=== PATIENT | male | born 1960 | race African-American/Black ===

== ENCOUNTER 2018-09-05 09:10 | Emergency (ER) | payer MEDICAID, OTHER ==
[~2018-09-05] VITALS: Ht 170.2 cm; Wt 98.4 kg
[2018-09-05 09:17] VITALS: BP 145/82
[2018-09-05] MEDS ORDERED: KETOROLAC TROMETH 60MG/2ML VIAL IM ONE (10:30)
[2018-09-05 11:19] LABS: Urine Bacteria NONE SEEN /hpf (None Seen); Urine Blood Negative /uL (Negative); Urine Mucus FEW (None Seen); Urine Specific Gravity 1.014 (1.001-1.035); Urine WBC 32 /hpf (0 - 3)
== END 2018-09-05 11:35 | disposition home or self-care (01) ==
LOC: ER 09:12
DX: M54.6 Pain in thoracic spine (principal); G89.29 Other chronic pain
CPT/HCPCS: 74176; 81001; 96372; 99285; J1885

== ENCOUNTER 2019-11-27 09:40 | Emergency (ER) | payer MEDICAID ==
[~2019-11-27] VITALS: Ht 170.2 cm; Wt 77.1 kg
[2019-11-27] MEDS ORDERED: ACETAMINOPHEN 500 MG TAB PO ONE (10:00)
[2019-11-27 11:40] VITALS: BP 154/88
== END 2019-11-27 12:31 | disposition home or self-care (01) ==
LOC: ER 09:40
DX: M79.641 Pain in right hand (principal); W21.07XA Struck by softball, initial encounter; Y93.64 Activity, baseball; Y92.39 Other specified sports and athletic area as the place of occurrence of the external cause; Y99.8 Other external cause status
CPT/HCPCS: 29125; 73130

== ENCOUNTER 2019-12-22 21:23 | Emergency (ER) | payer MEDICAID ==
[~2019-12-22] VITALS: Ht 167.6 cm; Wt 79.4 kg
[2019-12-23 02:43] LABS: Basophils # (auto) 0 uL; Eosinophils # (auto) 0.2 uL; Eosinophils % (auto) 4.3 % (0.0-7.0); Hematocrit 48.1 % (41.0-53.0); Hemoglobin 16.1 g/dL (13.5-17.5); Lymphocytes # (auto) 1.8 uL; Lymphocytes % (auto) 37.6 % (10.0-50.0); Mean Corpuscular Hemoglobin 30.1 pg (28.0-32.0); Mean Corpuscular Hgb Conc. 33.5 g/dL (32.0-36.0); Monocytes # (auto) 0.7 uL; Monocytes % (auto) 14.6 % (0.0-12.0); Neutrophils % (auto) 42.5 % (37.0-80.0); Nucleated Red Blood Cells % 0.1 %; Platelet Count (auto) 321 10^3/uL (140-450); Red Blood Cells 5.35 10^6/uL (4.5-5.90); Red Cell Distribution Width 14.1 % (11.8-14.3); White Blood Cell 4.8 10^3/uL (4.4-10.8)
[2019-12-23 02:49] LABS: Albumin 3.3 g/dL (3.4-5.0); Anion Gap 6 (5-15); Blood Urea Nitrogen 7 mg/dL (7-18); Calcium 8.5 mg/dL (8.5-10.1); Carbon Dioxide 26 mmol/L (21-32); Chloride 106 mmol/L (98-107); Glucose 118 mg/dL (74-106); Magnesium 2.2 mg/dL (1.6-2.6); Potassium 3.4 mmol/L (3.5-5.1); Salicylate < 1.7 mg/dL (2.8-20.0); Sodium 138 mmol/L (136-145)
[2019-12-23 02:51] LABS: Alanine Aminotransferase 33 U/L (16-61); Aspartate Aminotransferase 22 U/L (15-37); BUN/Creatinine Ratio 9.3; Blood Alcohol < 3.0 mg/dL (0-5); GFR African American 137 mL/min; GFR Non-African American 113 mL/min
[2019-12-23 02:52] LABS: Acetaminophen < 2.0 ug/mL (10-30)
[2019-12-23 02:53] LABS: Alkaline Phosphatase 97 U/L (45-117); Bilirubin, Total 0.7 mg/dL (0.2-1.0)
[2019-12-23 05:00] VITALS: BP 146/101
== END 2019-12-23 06:00 | disposition home or self-care (01) ==
LOC: EDBD 21:23 → ER 21:23 → EDUNIT# 21:23 → ER 12-23 06:00
DX: S20.212A Contusion of left front wall of thorax, initial encounter (principal); S30.1XXA Contusion of abdominal wall, initial encounter; S16.1XXA Strain of muscle, fascia and tendon at neck level, initial encounter; Z88.6 Allergy status to analgesic agent; W22.8XXA Striking against or struck by other objects, initial encounter; Y93.89 Activity, other specified; Y92.89 Other specified places as the place of occurrence of the external cause; Y99.8 Other external cause status
CPT/HCPCS: 36415; 70450; 71250; 72125; 74176; 80053; 80320; 80329; 83735; 85025; 93005

== ENCOUNTER 2020-07-29 16:30 | Inpatient (IN) | payer MEDICAID ==
[~2020-07-29] VITALS: Ht 167.6 cm; Wt 92.7 kg
[2020-07-29] MEDS ORDERED: ASPirin 81 mg TAB PO ONE (17:00)
[2020-07-29] MEDS ORDERED: FUROSEMIDE 40 MG/4 ML VIAL IV ONE (17:00)
[2020-07-29 18:17] LABS: Basophils # (auto) 0 10 ^3/uL (0-0.2); Basophils % (auto) 0.4 % (0.0-2.0); Eosinophils # (auto) 0.1 10 ^3/uL (0-0.8); Eosinophils % (auto) 1.3 % (0.0-7.0); Hematocrit 42.3 % (41.0-53.0); Hemoglobin 13.6 g/dL (13.5-17.5); Lymphocytes % (auto) 19.4 % (10.0-50.0); Mean Corpuscular Hemoglobin 29.1 pg (28.0-32.0); Mean Corpuscular Hgb Conc. 32.2 g/dL (32.0-36.0); Mean Corpuscular Volume 90.6 fL (80.0-100.0); Monocytes # (auto) 0.6 10 ^3/uL (0-1.3); Monocytes % (auto) 12.4 % (0.0-12.0); Neutrophils # (auto) 3.4 10 ^3/uL (1.6-8.6); Neutrophils % (auto) 66.5 % (37.0-80.0); Nucleated Red Blood Cells % 0.1 %; Platelet Count (auto) 282 10^3/uL (140-450); Red Blood Cells 4.67 10^6/uL (4.5-5.90); Red Cell Distribution Width 15.3 % (11.8-14.3); White Blood Cell 5.1 10^3/uL (4.4-10.8)
[2020-07-29 18:18] LABS: Potassium 3.9 mmol/L (3.5-5.1)
[2020-07-29 18:24] LABS: BUN/Creatinine Ratio 12.2; Total Protein 6.7 g/dL (6.4-8.2)
[2020-07-29] MEDS ORDERED: cefTRIAXone 1GM/50ML D5W 50 ML IV ONE (18:30)
[2020-07-29] MEDS ORDERED: AZITHROMYCIN 500MG/ 250ML 250 ML IV ONE (18:30)
[2020-07-29 19:50] LABS: CRP High Sensitivity 1.1 mg/dL (< 0.3)
[2020-07-29] MEDS ORDERED: NITROGLYCERIN 0.4 MG SL TAB SL PRN (21:45)
[2020-07-29] MEDS ORDERED: ONDANSETRON HCL 4 MG/2 ML VIAL IV PRN (21:45)
[2020-07-29] MEDS ORDERED: ACETAMINOPHEN 325 MG TAB PO PRN (21:45)
[2020-07-29] MEDS ORDERED: MORPHINE SULF INJ 2 MG/ML SYRINGE 1ML IV PRN ×2 (21:45)
[2020-07-29] MEDS ORDERED: LORazepam 2MG/ML-1ML VIAL IV ONE (22:00)
--- NOTE | 2020-07-29 23:13 | NUR ---
TELE ADMIT Patient arrived to unit via stretcher and was transferred safely to bed. Patient is agitated and restless. Per BOOK AGENT that transported patient, this occurred after ativan was administered. Patient able to tell me his name and birthday but doesn't answer other questions. Patient placed on 4L [place] O2 is 98%. Bed is in lowest/locked position with side rails up X's 2 and call light is within reach of patient. Bed alarm is on. Socks applied to patient. Will continue care. Will get admission information from chart and try to get more answers from patient when he is more awake and cooperative.
[2020-07-29 23:55] VITALS: BP 139/94
[2020-07-30] VITALS (7 sets, daily range): BP systolic 131–155; BP diastolic 62–94
--- NOTE | 2020-07-30 02:57 | NUR ---
PATIENT TRANSFERRED TO ROOM 74B full report given to SILVERIO Colon. Patient transferred via wheelchair. Will endorse care.
--- NOTE | 2020-07-30 03:15 | NUR ---
Transfer from east, covid negative x2. HAZEL KIRAN admitted to Tele[facility] unit after SBAR received. Patient oriented to Darlene richardson RN, unit, room, bed, and unit policies regarding patient care and visiting hours. Patient now on continuous telemetry monitoring, tele box #74 and telemetry reading on arrival to unit is ST in the 110s. Patient placed on bedside oxygen 2L NC, weighed by bedscale and encouraged to call if they need something. All questions and concerns addressed, patient verbalized understanding. Patient anxious upon arrival, will continue to monitor patient.
--- NOTE | 2020-07-30 03:20 | NUR ---
Telemetry box 4 returned to tech room and new telemetry box 74 received and placed on patient.
--- NOTE | 2020-07-30 03:26 | NUR ---
Patient agitated upon arrival. Could not assess the patient further than a physical assessment. Patient was moving around and kept sitting up and down. Patient would not answer questions asked and kept asking for a map of the location. Lights and stimulus turned down for patient comfort. Will continue to monitor.
--- NOTE | 2020-07-30 05:15 | NUR ---
Patient is having anxiety, patient stated that he gets bad anxiety every night and he likes to go outside to help. Patients window blinds open so that patient can see outside. Patient asked to walk around the unit, for patients safety he was told to lay in bed as patient starts falling asleep when trying to move around. Bed alarm on, patient is a fall risk, will continue to monitor patient.
--- NOTE | 2020-07-30 07:20 | NUR ---
Pt getting out of bed with out asking for help, pt is sleepy and drowsy, pt assisted back to bed, call light with in reach, bed alarm on, will continue to monitor pt.
[2020-07-30] MEDS ORDERED: FUROSEMIDE 40 MG/4 ML VIAL IV SCH (10:00)
[2020-07-30] MEDS: ASPirin 81 mg TAB PO SCH (10:00)
[2020-07-30] MEDS: ATORVASTATIN 20 MG TAB PO SCH (10:00)
[2020-07-30 10:12] LABS: Basophils # (auto) 0 10 ^3/uL (0-0.2); Basophils % (auto) 0.8 % (0.0-2.0); Eosinophils # (auto) 0 10 ^3/uL (0-0.8); Eosinophils % (auto) 0.7 % (0.0-7.0); Hematocrit 42.2 % (41.0-53.0); Hemoglobin 13.6 g/dL (13.5-17.5); Lymphocytes # (auto) 1.2 10 ^3/uL (0.4-5.4); Lymphocytes % (auto) 21.8 % (10.0-50.0); Mean Corpuscular Hemoglobin 29.2 pg (28.0-32.0); Mean Corpuscular Hgb Conc. 32.2 g/dL (32.0-36.0); Mean Corpuscular Volume 90.5 fL (80.0-100.0); Monocytes # (auto) 0.6 10 ^3/uL (0-1.3); Neutrophils # (auto) 3.6 10 ^3/uL (1.6-8.6); Neutrophils % (auto) 65.7 % (37.0-80.0); Nucleated Red Blood Cells % 0.1 %; Platelet Count (auto) 285 10^3/uL (140-450); Red Blood Cells 4.67 10^6/uL (4.5-5.90); White Blood Cell 5.5 10^3/uL (4.4-10.8)
--- NOTE | 2020-07-30 10:30 | NUR ---
Held po schedule medications due to pt been very drowsy and unable to stay awake long enough to swallow the medications. will continue to monitor pt.
[2020-07-30 10:31] LABS: Potassium 4.4 mmol/L (3.5-5.1)
[2020-07-30 10:41] LABS: Albumin 2.9 g/dL (3.4-5.0); BUN/Creatinine Ratio 15.2; Bilirubin, Total 1.4 mg/dL (0.2-1.0); Calcium 8.2 mg/dL (8.5-10.1); Magnesium 2.6 mg/dL (1.6-2.6); Phosphorus 3.3 mg/dL (2.5-4.90); Total Protein 6.6 g/dL (6.4-8.2)
--- NOTE | 2020-07-30 10:55 | NUR ---
Page Dr. Ifeanyi Cm to inform him of pt having SOB, labored breathing, and retracting, awaiting call back.
[2020-07-30] MEDS: levoFLOXacin 500MG 100 ML IV SCH (11:16)
[2020-07-30] MEDS: ENOXAPARIN SOD 40 MG/0.4 ML SYRINGE SC SCH (11:17)
--- NOTE | 2020-07-30 11:17 | NUR ---
Received call back from Dr. Ifeanyi Wick, doctor informed that pt is retracting, breathing labored, and SOB, orders received for breathing treatments, and for a CXR.
[2020-07-30] MEDS: IPRATROPIUM BROM 0.5 MG/2.5ML INH SOL NEB SCH ×3 (12:03→21:51)
[2020-07-30] MEDS: ALBUTEROL SULF 2.5 MG/0.5ML(0.5%) NEB SOLN NEB SCH ×3 (12:03→21:51)
--- NOTE | 2020-07-30 13:30 | NUR ---
Dr. Garvin / cardio at bed side to see pt, doctor ordered ABG.
--- NOTE | 2020-07-30 14:10 | NUR ---
Dr. Garvin / cardiology at bed side to see pt, orders received for ABG.
--- NOTE | 2020-07-30 15:32 | NUR ---
Page Dr. Christian Cm to inform him that pt is very anxious and requesting anxiety medication, awaiting call back.
--- NOTE | 2020-07-30 15:40 | NUR ---
Received call back from Dr. Ifeanyi calvert, as per doctor no anxiety medication for now, orders received for pulmo consult with Dr. Granado. Pt's family informed.
--- NOTE | 2020-07-30 16:21 | NUR ---
Called Dr. Granado / fozia consult for SOB, left a message.
[2020-07-30 18:06] LABS: INR 1.24 (0.9-1.15); Partial Thromboplastin Time 33.7 sec (23.0-31.2)
--- NOTE | 2020-07-30 19:20 | NUR ---
OPENING SHIFT NOTE ASSUMED PATIENT CARE FROM DAY SHIFT RN GAL. PATIENT IS CURRENTLY SITTING IN CHAIR ON ROOM AIR. PATIENT IS ON PHONE WITH A FAMILY MEMBER. PATIENT VISIBLY ANXIOUS AND SAYING "WHEN DO I GO HOME?" EXPLAINED TO PATIENT THAT DR. KHALIL WILL SEE HIM TONIGHT TO CONSULT HIM. PATIENT SAID 'OK.' WILL CONTINUE TO MONITOR PATIENT.
--- NOTE | 2020-07-30 20:35 | NUR ---
DR. KHALIL AT BEDSIDE DR. KHALIL WILL SEE PATIENT TOMORROW REGARDING A RIGHT LOWER LOBE PARACENTESIS. PATIENT IS NOT RESPONDING PROPERLY. DR. KHALIL WILL WAIT TO GET CONSENT WHEN PATIENT IS ABLE TO VERBALIZE UNDERSTANDING OF PROCEDURE. Addendum: 07/31/20 at 0019 by ENA ECHEVARRIA RN RN PER DR. KHALIL: MRI WILL ALSO BE DONE TOMORROW FOR DR. KHALIL TO REVIEW FOR FLUID IN LOWER RIGHT LUNG.
--- NOTE | 2020-07-30 21:30 | NUR ---
RT PAGED PATIENT IS VISIBLY MORE ANXIOUS AND VERBALIZING THAT HE FEELS SHORT OF BREATH. PATIENT IS PUT BACK ON NASAL CANULA AND GIVEN 2L/ MIN OF O2. PATIENT SATING IN THE LOW 60'S. PATIENT ASKED, " AM I IN AN OUTPATIENT CLINIC?" PATIENT WAS TOLD HE HAS BEEN ADMITTED AND REORIENTED. PATIENT PUT ON 4LITERS/ MIN ON SIMPLE MASK AND SATING AT 98%. SAT PATIENT WITH HOB AT 90 DEGREES. RT CAME AND GAVE HIM A BREATHING TREATMENT. AFTER TREATMENT PATIENT IS ON 2L NASAL CANULA SATING AT 98%. WILL CONTINUE TO MONITOR.
--- NOTE | 2020-07-30 21:45 | NUR ---
PAGED DR. Ifeanyi LARA SPOKE WITH DR. LARA EXCHANGE TO RECEIVE ORDERS FOR ANOTHER ABG AND TO NOTIFY KHALIL OF ABG RESULTS.
--- NOTE | 2020-07-30 22:10 | NUR ---
ABG RESULTED CALLED DR. KHALIL EXCHANGE TO GIVE AN UPDATE ON ABG'S. EXCHANGE NOT ANSWERING. ABG RESULTS HAVE TRENDED BACK TO NORMAL.
[2020-07-30] MEDS ORDERED: LEVO500T21 PO (22:11)
[2020-07-30] MEDS ORDERED: FURO1TAB31 PO (22:11)
[2020-07-30] MEDS ORDERED: ALBUAER3 IN (22:11)
[2020-07-30] MEDS ORDERED: FUROSEMIDE 20 MG/2 ML VIAL IV ONE (22:15)
[2020-07-30] MEDS ORDERED: FUROSEMIDE 40 MG/4 ML VIAL ONE (22:44)
[2020-07-30] MEDS ORDERED: FUROSEMIDE 40 MG/4 ML VIAL IV ONE (22:45)
[2020-07-31] VITALS (7 sets, daily range): BP systolic 108–135; BP diastolic 74–91
[2020-07-31] MEDS: ALBUTEROL SULF 2.5 MG/0.5ML(0.5%) NEB SOLN NEB SCH ×4 (02:27→13:45)
[2020-07-31] MEDS: IPRATROPIUM BROM 0.5 MG/2.5ML INH SOL NEB SCH ×4 (02:27→13:45)
[2020-07-31 06:20] LABS: BUN/Creatinine Ratio 18.3; Calcium 8.2 mg/dL (8.5-10.1); Potassium 3.8 mmol/L (3.5-5.1)
--- NOTE | 2020-07-31 08:15 | NUR ---
Opening Shift Note Assumed care of patient, awake and alert. Patient lying on right side in semi-vega's position, breathing deeply. No complaints of pain at this time. Patient on 2L of O2 NC. Instructed on POC and to call for assist PRN. Patient verbalized understanding. Bed is in lowest position and the call light is within reach of the patient. Will continue to monitor for changes Q1hr and PRN.
[2020-07-31] MEDS ORDERED: FUROSEMIDE 40 MG/4 ML VIAL IV SCH (10:00)
[2020-07-31] MEDS: ATORVASTATIN 20 MG TAB PO SCH (10:06)
[2020-07-31] MEDS: ASPirin 81 mg TAB PO SCH (10:06)
[2020-07-31] MEDS: levoFLOXacin 500MG 100 ML IV SCH (10:12)
--- NOTE | 2020-07-31 10:15 | NUR ---
Dr. Granado at bedside Dr. Granado at bedside discussing the POC with the patient. Ultrasound at bedside. Ultrasound updated Dr. Granado on right side fluid accumulation. Dr. Granado wanting to do a thoracentesis. Supplies were gathered and consents were signed. 750 pleural fluid removed. Pre-procedure BP 113/76, O2 94%. Post-procedure BP 111/68, O2 100%. Patient tolerated the procedure well. Will continue to monitor.
[2020-07-31] MEDS: ENOXAPARIN SOD 40 MG/0.4 ML SYRINGE SC SCH (10:16)
--- NOTE | 2020-07-31 11:28 | NUR ---
Cytology Specimen Walked to Lab Pleural fluid walked to lab.
--- NOTE | 2020-07-31 13:58 | NUR ---
Assessment Pt refusing placement options but accepted resource. Patient stated he will figure it out his living situation once he discharge from hospital. Provided information to clothes closet and meal prior to discharge. Pt accepted. Offered pt taxi voucher within 30 miles and pt agreed. Completed home less assessment and pt signed homeless waiver. Will follow-up and provide intervention as appropriate. Addendum: 07/31/20 at 1401 by EDWARD HUNG SS Amended: Links added.
--- NOTE | 2020-07-31 15:31 | NUR ---
Cardiology Clearance Spoke with Dr Garvin regarding clearance from his standpoint. Per , pt is cleared for d/c. Will continue with d/c.
--- NOTE | 2020-07-31 18:08 | NUR ---
Discharged Discharge instructions given as ordered. Encouraged to follow up with primary care physician and specialists as instructed. All questions and concerns addressed. Patient verbalized understanding. Medication reconciliation form completed and copy given to patient. New medications filled and given to patient. IV removed with catheter intact, pressure dressing applied. Telemetry unit returned to ICU. Patient taken to taxi transport via wheelchair with all personal belongings, accompanied by staff. No distress noted at time of departure.
== END 2020-07-31 18:01 | disposition home or self-care (01) | DRG 194 ==
LOC: ER 16:30 → TELE 16:31 → TELE-EAST 23:50 → TELE-WESTW 07-30 02:55
PROVIDERS: ADMIT Internal Medicine; ATTEND Internal Medicine
PROC: 0W9930Z Drainage of Right Pleural Cavity with Drainage Device, Percutaneous Approach (ICD-10-PCS; principal; 2020-07-31)
DX: I11.0 Hypertensive heart disease with heart failure (principal); J18.9 Pneumonia, unspecified organism; I50.23 Acute on chronic systolic (congestive) heart failure; I24.9 Acute ischemic heart disease, unspecified; G47.33 Obstructive sleep apnea (adult) (pediatric); Z91.14 Patient's other noncompliance with medication regimen; Z59.0 Homelessness; Z88.6 Allergy status to analgesic agent; J90 Pleural effusion, not elsewhere classified; F17.210 Nicotine dependence, cigarettes, uncomplicated; J45.909 Unspecified asthma, uncomplicated; Z20.828 Contact with and (suspected) exposure to other viral communicable diseases; I42.9 Cardiomyopathy, unspecified
CPT/HCPCS: 10022; 36415; 36600; 71045; 76604; 76942; 80048; 80053; 80061; 82728; 82805; 82962; 83036; 83605; 83615; 83735; 83880; 83986; 84100; 84484; 85025; 85610; 85730; 86141; 87040; 87205; 87426; 89051; 93306; 94640; 96365; 96368; 96375; G0378; J0696; J1956

== ENCOUNTER 2022-01-12 15:36 | Inpatient (IN) | payer MEDICAID ==
[~2022-01-12] VITALS: Ht 177.8 cm; Wt 79.4 kg
[~2022-01-12 15:36] MED LIST: ALBUAER3 IN; FURO1TAB31 PO; LEVO500T31 PO
[2022-01-12] MEDS ORDERED: SODIUM CHLORIDE 0.9% 1,000 ML IV ONE (16:15)
[2022-01-12 16:31] LABS: Basophils # (auto) 0.1 10 ^3/uL (0-0.2); Basophils % (auto) 0.5 % (0.0-2.0); Eosinophils # (auto) 0 10 ^3/uL (0-0.8); Eosinophils % (auto) 0.1 % (0.0-7.0); Hematocrit 41.3 % (41.0-53.0); Hemoglobin 13.7 g/dL (13.5-17.5); Lymphocytes % (auto) 7.9 % (10.0-50.0); Mean Corpuscular Hgb Conc. 33.1 g/dL (32.0-36.0); Mean Corpuscular Volume 90.4 fL (80.0-100.0); Monocytes # (auto) 1.1 10 ^3/uL (0-1.3); Monocytes % (auto) 8.2 % (0.0-12.0); Neutrophils % (auto) 83.3 % (37.0-80.0); Nucleated Red Blood Cells % 0.1 %; Red Blood Cells 4.57 10^6/uL (4.5-5.90); Red Cell Distribution Width 13.8 % (11.8-14.3); White Blood Cell 13.2 10^3/uL (4.4-10.8)
[2022-01-12 16:44] LABS: Albumin 2.9 g/dL (3.4-5.0); Potassium 3.7 mmol/L (3.5-5.1)
[2022-01-12 16:48] LABS: INR 1.22 (0.9-1.15); Partial Thromboplastin Time 31.9 sec (23.6-33.0)
[2022-01-12 16:50] LABS: BUN/Creatinine Ratio 15.3; Bilirubin, Total 1.4 mg/dL (0.2-1.0); Total Protein 6.4 g/dL (6.4-8.2)
[2022-01-12] MEDS ORDERED: FUROSEMIDE 40 MG/4 ML VIAL IV ONE (18:30)
[2022-01-12 20:17] LABS: Urine Bacteria NONE SEEN /hpf (None Seen); Urine Blood 1+ /uL (Negative); Urine Hyaline Cast FEW /lpf (0 - 2); Urine Specific Gravity 1.006 (1.001-1.035); Urine WBC <1 /hpf (0 - 3)
[2022-01-12] MEDS ORDERED: cefTRIAXone SOD 1,000 MG VL IV ONE (21:15)
[2022-01-12] MEDS ORDERED: AZITHROMYCIN 250 MG TAB PO ONE (21:15)
[2022-01-12] MEDS ORDERED: ONDANSETRON HCL 4 MG/2 ML VIAL IV PRN (23:45)
[2022-01-12] MEDS ORDERED: NITROGLYCERIN 0.4 MG SL TAB SL PRN (23:45)
[2022-01-12] MEDS ORDERED: ALBUTEROL SULF 2.5 MG/0.5ML(0.5%) NEB SOLN NEB PRN (23:45)
[2022-01-12] MEDS ORDERED: MORPHINE SULFATE INJECTION 2 MG/ML SYRG IV PRN (23:45)
[2022-01-13] VITALS (7 sets, daily range): BP systolic 102–128; BP diastolic 65–87
[2022-01-13] MEDS ORDERED: FURO40TA4 PO (02:53)
[2022-01-13] MEDS: FUROSEMIDE 20 MG/2 ML VIAL IV SCH ×2 (06:01→18:00)
[2022-01-13 06:27] LABS: Basophils # (auto) 0.1 10 ^3/uL (0-0.2); Basophils % (auto) 0.5 % (0.0-2.0); Eosinophils # (auto) 0.1 10 ^3/uL (0-0.8); Eosinophils % (auto) 0.6 % (0.0-7.0); Hemoglobin 14.9 g/dL (13.5-17.5); Lymphocytes # (auto) 1.3 10 ^3/uL (0.4-5.4); Lymphocytes % (auto) 12.6 % (10.0-50.0); Mean Corpuscular Hemoglobin 30.5 pg (28.0-32.0); Mean Corpuscular Volume 89.9 fL (80.0-100.0); Monocytes # (auto) 1.1 10 ^3/uL (0-1.3); Monocytes % (auto) 10.4 % (0.0-12.0); Neutrophils # (auto) 7.8 10 ^3/uL (1.6-8.6); Neutrophils % (auto) 75.9 % (37.0-80.0); Nucleated Red Blood Cells % 0.1 %; Red Blood Cells 4.89 10^6/uL (4.5-5.90); Red Cell Distribution Width 13.4 % (11.8-14.3); White Blood Cell 10.2 10^3/uL (4.4-10.8)
[2022-01-13 06:44] LABS: BUN/Creatinine Ratio 14.9; Calcium 8.2 mg/dL (8.5-10.1); Potassium 3.7 mmol/L (3.5-5.1)
[2022-01-13] MEDS ORDERED: ENOXAPARIN SOD 40 MG/0.4 ML SYRINGE SC SCH (10:00)
[2022-01-13] MEDS ORDERED: FURO1TAB33 PO (17:46)
[2022-01-13] MEDS ORDERED: ALBUAER3 IN (17:46)
[2022-01-13] MEDS ORDERED: DOXY-332 PO (17:46)
[2022-01-13] MEDS ORDERED: AZITHROMYCIN 500MG/ 250ML 250 ML IV SCH (22:00)
[2022-01-13] MEDS ORDERED: cefTRIAXone 1GM/50ML D5W 50 ML IV SCH (22:00)
== END 2022-01-13 23:20 | disposition home health service (06) | DRG 194 ==
LOC: ER 15:36 → TELE 23:45 → TELE-CENTR 01-13 02:05
PROVIDERS: ADMIT Hospitalist; ATTEND Hospitalist
DX: I11.0 Hypertensive heart disease with heart failure (principal); J96.21 Acute and chronic respiratory failure with hypoxia; E44.0 Moderate protein-calorie malnutrition; J18.9 Pneumonia, unspecified organism; I42.9 Cardiomyopathy, unspecified; I50.23 Acute on chronic systolic (congestive) heart failure; J44.0 Chronic obstructive pulmonary disease with (acute) lower respiratory infection; Z20.822 Contact with and (suspected) exposure to COVID-19; J98.11 Atelectasis; M19.90 Unspecified osteoarthritis, unspecified site; Z68.25 Body mass index [BMI] 25.0-25.9, adult; Z87.891 Personal history of nicotine dependence; Z91.14 Patient's other noncompliance with medication regimen
CPT/HCPCS: 36415; 36600; 71045; 80048; 80053; 81001; 82805; 83735; 83880; 84443; 84484; 85025; 85379; 85610; 85730; 93005; 93306; 96374; 96375; G0378; J0696